=== PATIENT | female | born 1950 | race Caucasian/White ===

== ENCOUNTER → 2017-11-15 | Outpatient (CLI) | payer BC ==
--- NOTE | 2017-11-16 10:27 | BD ---
EXAMINATION TYPE: Axial Bone Density DATE OF EXAM: 11/15/2017 CLINICAL HISTORY: Osteoporosis screening. Postmenopausal female. Height: 62.5 Weight: 181 FRAX RISK QUESTIONS: Alcohol (3 or more units per day): no Family History (Parent hip fracture): no Glucocorticoids (More than 3mos): no (Ex: prednisone, prednisolone, methylprednisolone, dexamethasone, and hydrocortisone). History of Fracture in Adulthood: yes, foot, wrist Secondary Osteoporosis: 1. Type 1 Diabetes: no 2. Hyperthyroidism: no 3. Menopause before 45: no 4. Malnutrition: no 5. Chronic liver disease: no Rheumatoid Arthritis: no Current Tobacco Use: no RISK FACTORS HISTORY OF: Hip Fracture :no Spine Fracture: possible fracture involving sacrum & sacrococcygeal junction When: 2014 History of left Wrist Fracture: yes When: 2014 Surgery to Wrist (right/left): yes When: 2014 Family History of Osteoporosis: no Active: yes Diet low in dairy products/other sources of calcium: no Postmenopausal woman: yes Take estrogen and/or progesterone medications: no Lost more than 2 inches in height since high school: possible..patient states height may once have be en about 65 inches tall Frequent falls: no Poor Health: no Hyperparathyroidism: no Adrenal Insufficiency: no MEDICATIONS: Prednisone or other steroids: no Thyroid Medications: no Osteoporosis Medications: no Additional Medications: pill for "breathing" Additional History: EXAM MEASUREMENTS: Bone mineral densitometry was performed using the [employer]. Bone mineral density as measured about the Lumbar spine is: ----- L1-L4(G/cm2): 1.015 T Score Values are as follows: ----- L2: -1.5 ----- L3: -1.0 ----- L4: -1.5 ----- L1-L4: -1.4 Bone mineral density has: Increased 2.0% since study of: 09/07/2001 Bone mineral density about the R hip (g/cm2): 0.782 Bone mineral density about the L hip (g/cm2): 0.727 T Score values are as follows: -----R Neck: -1.8 -----L Neck: -2.2 -----R Total: -1.5 -----L Total: -1.7 Bone mineral density has: Increased 1.1% since study of: 09/07/2001 IMPRESSION: Osteopenia (T Score between -2.5 and -1). There is slightly increased risk of fracture and the patient may be considered for treatment. Re-Screen 2-5 years. NOTE: T-SCORE=SD OF THE YOUNG ADULT MEAN.
--- NOTE | 2017-11-17 08:44 | MM ---
Reason for exam: screening (asymptomatic). Physical Findings: A clinical breast exam by your physician is recommended on an annual basis and results should be correlated with mammographic findings. MG Screening Mammo w CAD Bilateral CC and MLO view(s) were taken. No prior studies available for comparison. There is no discrete abnormality. ASSESSMENT: Benign, BI-RAD 2 RECOMMENDATION: Routine screening mammogram of both breasts in 1 year.
== END | disposition home or self-care (01) ==
LOC: RADMAMWWP 07:35
PROVIDERS: ATTEND Family Medicine
DX: Z12.31 Encounter for screening mammogram for malignant neoplasm of breast (principal); M85.80 Other specified disorders of bone density and structure, unspecified site; Z80.3 Family history of malignant neoplasm of breast; Z78.0 Asymptomatic menopausal state
CPT/HCPCS: 77067; 77080

== ENCOUNTER → 2019-01-21 | Outpatient (CLI) | payer MEDICARE, BC ==
--- NOTE | 2019-01-21 11:58 | MM ---
Reason for exam: screening (asymptomatic). Last mammogram was performed 1 year and 2 months ago. Physical Findings: A clinical breast exam by your physician is recommended on an annual basis and results should be correlated with mammographic findings. MG 3D Screening Mammo W/Cad Bilateral CC and MLO view(s) were taken. Prior study comparison: November 15, 2017, bilateral MG screening mammo w CAD. The breast tissue is heterogeneously dense. This may lower the sensitivity of mammography. Benign appearing bilateral calcifications, mostly vascular. No suspicious abnormality. No significant changes when compared with prior studies. ASSESSMENT: Benign, BI-RAD 2 RECOMMENDATION: Routine screening mammogram of both breasts in 1 year.
== END | disposition home or self-care (01) ==
LOC: RADMAMWWP 08:59
PROVIDERS: ATTEND Family Medicine
DX: Z12.31 Encounter for screening mammogram for malignant neoplasm of breast (principal); Z80.3 Family history of malignant neoplasm of breast
CPT/HCPCS: 77063; 77067

== ENCOUNTER 2020-05-18 09:38 | Observation (INO) | payer MEDICARE, BC ==
[2020-05-18] MEDS ORDERED: BACITRACIN OINT 1 EACH PACKET TOPICAL ONE (10:07)
[2020-05-18] MEDS ORDERED: SODIUM CHLORIDE 0.9% 500 ML 500 ML IV ONE (10:07)
[2020-05-18] MEDS ORDERED: LIDOCAINE 1% INJ 10MG/ML (20 ML MDV) SQ ONE (10:07)
[2020-05-18] MEDS ORDERED: DIPH,PERTUS(ACELL)TETVAC-LF 0.5 ML VIAL IM ONE (10:08)
--- NOTE | 2020-05-18 10:14 | ED ---
Fall HPI - General Chief Complaint: Fall Stated Complaint: fall/knee lac Time Seen by Provider: 05/18/20 10:01 Source: patient Mode of arrival: ambulatory - History of Present Illness Initial Comments: 69-year-old female patient presents to the emergency department today for evalu ation after experiencing a fall. Patient states that she fell down the stairs approximately one hour ago. states when she he got home he noticed some blood at the bottom of the stairs. States patient was doing laundry. Had a large laceration to the left knee which she didn't cover. She states she is not having any pain to the area. Patient does have obvious head trauma but denies any headache, blurred vision, double vision. Denies any neck or back pain. She is reporting some mild discomfort to the right hand especially over the thumb. She is unsure when her last tetanus vaccine was given. Denies any use of anticoagulants or antiplatelet medications. States there is approximately [address] that she fell down. States she thinks she missed a step. Patient denies any recent rash, fever, chills, cough, shortness of breath, chest pain, abdominal pain, nausea, vomiting, diarrhea, constipation, hematuria, dysuria, urinary urgency, urinary frequency, or any other complaints. - Related Data Home Medications Medication Instructions Recorded Confirmed Multivitamins, Thera [Theragran] 1 tab PO DAILY 12/24/14 05/18/20 Ascorbic Acid [Vitamin C] 500 mg PO DAILY 05/18/20 05/18/20 Mv-Min/Vit C/Glut/Lysine/Hc124 1 tab PO DAILY 05/18/20 05/18/20 [Airborne Tablet Chewable] Vitamin D3(Unknown Dose) 1 tab PO DAILY 05/18/20 05/18/20 Zinc 50 mg PO DAILY 05/18/20 05/18/20 Allergies Allergy/AdvReac Type Severity Reaction Status Date / Time No Known Allergies Allergy Verified 05/18/20 13:31 Review of Systems ROS Statement: Those systems with pertinent positive or pertinent negative responses have been documented in the HPI. ROS Other: All systems not noted in ROS Statement are negative. Past Medical History Past Medical History: Osteoarthritis (OA) Additional Past Medical History / Comment(s): fx. left wrist Monday, currently in splint History of Any Multi-Drug Resistant Organisms: None Reported Past Surgical History: Orthopedic Surgery Additional Past Surgical History / Comment(s): ORIF left wrist, surgery on left hand index finger after injury Past Anesthesia/Blood Transfusion Reactions: No Reported Reaction Past Psychological History: No Psychological Hx Reported Smoking Status: Former smoker Past Alcohol Use History: Occasional Past Drug Use History: None Reported - Past Family History Father Family Medical History: Cancer Mother Family Medical History: Cancer General Exam Limitations: no limitations General appearance: alert, in no apparent distress, other (This is a well-developed, well-nourished adult female patient in no acute distress. Vital signs upon presentation are temperature 99.2F, pulse 1:30, respirations 18, blood pressure 177/108, pulse ox 95% on room air.) Eye exam: Present: normal appearance, PERRL, EOMI, periorbital swelling (Left superior orbital), periorbital tenderness (Left superior orbital). Absent: scleral icterus, conjunctival injection, nystagmus ENT exam: Present: normal exam, normal oropharynx, mucous membranes moist, TM's normal bilaterally (No hemotympanum) Neck exam: Present: normal inspection, full ROM, other (Nontender, no step-off, no deformity to firm midline palpation of the posterior cervical spine. Full range of motion without pain or limitation.). Absent: tenderness, meningismus, lymphadenopathy Respiratory exam: Present: normal lung sounds bilaterally. Absent: respiratory distress, wheezes, rales, rhonchi, stridor Cardiovascular Exam: Present: regular rate, normal rhythm, normal heart sounds. Absent: systolic murmur, diastolic murmur, rubs, gallop, clicks GI/Abdominal exam: Present: soft, normal bowel sounds. Absent: distended, tenderness, guarding, rebound, rigid Extremities exam: Present: full ROM, normal capillary refill, other (Soft tissue swelling and ecchymosis noted over the thenar eminence on the right hand. There is large, gaping, 12 cm laceration noted to the left inferior knee anteriorly. There is exposure of the joint sheath. No active bleeding. FROM intact. ). Absent: normal inspection, tenderness, pedal edema, joint swelling, calf tenderness Back exam: Present: normal inspection, other (Nontender, no step-off, no deformity to firm midline palpation of the thoracic and lumbar vertebrae. Full range of motion without pain or limitation.). Absent: vertebral tenderness Neurological exam: Present: alert, oriented X3, CN II-XII intact Psychiatric exam: Present: normal affect, normal mood Skin exam: Present: warm, dry, intact, normal color. Absent: rash Course Vital Signs 05/18/20 05/18/20 05/18/20 09:48 11:17 13:13 Temperature 99.2 F 99.0 F Pulse Rate 130 H 118 H Pulse Rate [ 125 H Pulse Oximetery ] Respiratory 18 18 18 Rate Blood Pressure 177/108 183/83 Blood Pressure 182/82 [Left Arm] O2 Sat by Pulse 95 97 96 Oximetry Medical Decision Making - Medical Decision Making 69-year-old female patient presented to the emergency department today for evaluation after experiencing a fall down approximately 7 steps. Patient did have some repetitive questioning, obvious trauma noted to the left periorbital region, and a large laceration to the left knee. Labs reviewed and are relatively unremarkable. CT brain and C-spine was obtained and showed no acute intracranial hemorrhage or fracture of the cervical spine. We did do CT facial bones which did show a inferior orbital rim fracture with mild depression. No muscular entrapment suspected. X-ray of the knee was unremarkable for acute osseous abnormality. Orthopedics was consulted, Chris Coleman PA-c was able to come and evaluate the patient, due to the severity and location of the laceration they did recommend irrigation and wash out in the OR. Patient was given, updated tetanus, and pain medication here in the emergency department. We did discuss orbital fracture and possible concussion. - Lab Data Result diagrams: 05/18/20 10:29 05/18/20 10:29 Lab Results 05/18/20 05/18/20 05/18/20 Range/Units 10:29 10:29 10:29 WBC 8.5 (3.8-10.6) k/uL RBC 4.73 (3.80-5.40) m/uL Hgb 14.4 (11.4-16.0) gm/dL Hct 44.6 (34.0-46.0) % MCV 94.4 (80.0-100.0) fL MCH 30.5 (25.0-35.0) pg MCHC 32.3 (31.0-37.0) g/dL RDW 12.9 (11.5-15.5) % Plt Count 279 (150-450) k/uL MPV 8.6 Neutrophils % 77 % Lymphocytes % 16 % Monocytes % 5 % Eosinophils % 1 % Basophils % 0 % Neutrophils # 6.6 (1.3-7.7) k/uL Lymphocytes # 1.4 (1.0-4.8) k/uL Monocytes # 0.4 (0-1.0) k/uL Eosinophils # 0.1 (0-0.7) k/uL Basophils # 0.0 (0-0.2) k/uL PT 9.9 (9.0-12.0) sec INR 0.9 (<1.2) APTT 22.2 (22.0-30.0) sec Sodium 139 (137-145) mmol/L Potassium 4.3 (3.5-5.1) mmol/L Chloride 107 (98-107) mmol/L Carbon Dioxide 21 L (22-30) mmol/L Anion Gap 11 mmol/L BUN 14 (7-17) mg/dL Creatinine 0.83 (0.52-1.04) mg/dL Est GFR (CKD-EPI)AfAm 83 (>60 ml/min/1.73 sqM) Est GFR (CKD-EPI)NonAf 72 (>60 ml/min/1.73 sqM) Glucose 118 H (74-99) mg/dL Calcium 10.3 H (8.4-10.2) mg/dL Total Bilirubin 0.6 (0.2-1.3) mg/dL AST 26 (14-36) U/L ALT 23 (4-34) U/L Alkaline Phosphatase 87 (38-126) U/L Total Protein 7.6 (6.3-8.2) g/dL Albumin 4.3 (3.5-5.0) g/dL Urine Color Urine Appearance (Clear) Urine pH (5.0-8.0) Ur Specific [place] (1.001-1.035) Urine Protein (Negative) Urine Glucose (UA) (Negative) Urine Ketones (Negative) Urine Blood (Negative) Urine Nitrite (Negative) Urine Bilirubin (Negative) Urine Urobilinogen (<2.0) mg/dL Ur Leukocyte Esterase (Negative) Urine RBC (0-5) /hpf Urine WBC (0-5) /hpf Ur Squamous Epith Cells (0-4) /hpf Urine Bacteria (None) /hpf Urine Mucus (None) /hpf 05/18/20 Range/Units 10:42 WBC (3.8-10.6) k/uL RBC (3.80-5.40) m/uL Hgb (11.4-16.0) gm/dL Hct (34.0-46.0) % MCV (80.0-100.0) fL MCH (25.0-35.0) pg MCHC (31.0-37.0) g/dL RDW (11.5-15.5) % Plt Count (150-450) k/uL MPV Neutrophils % % Lymphocytes % % Monocytes % % Eosinophils % % Basophils % % Neutrophils # (1.3-7.7) k/uL Lymphocytes # (1.0-4.8) k/uL Monocytes # (0-1.0) k/uL Eosinophils # (0-0.7) k/uL Basophils # (0-0.2) k/uL PT (9.0-12.0) sec INR (<1.2) APTT (22.0-30.0) sec Sodium (137-145) mmol/L Potassium (3.5-5.1) mmol/L Chloride (98-107) mmol/L Carbon Dioxide (22-30) mmol/L Anion Gap mmol/L BUN (7-17) mg/dL Creatinine (0.52-1.04) mg/dL Est GFR (CKD-EPI)AfAm (>60 ml/min/1.73 sqM) Est GFR (CKD-EPI)NonAf (>60 ml/min/1.73 sqM) Glucose (74-99) mg/dL Calcium (8.4-10.2) mg/dL Total Bilirubin (0.2-1.3) mg/dL AST (14-36) U/L ALT (4-34) U/L Alkaline Phosphatase (38-126) U/L Total Protein (6.3-8.2) g/dL Albumin (3.5-5.0) g/dL Urine Color Yellow Urine Appearance Cloudy H (Clear) Urine pH 5.5 (5.0-8.0) Ur Specific [place] 1.026 (1.001-1.035) Urine Protein Trace H (Negative) Urine Glucose (UA) Negative (Negative) Urine Ketones Negative (Negative) Urine Blood Negative (Negative) Urine Nitrite Negative (Negative) Urine Bilirubin Negative (Negative) Urine Urobilinogen <2.0 (<2.0) mg/dL Ur Leukocyte Esterase Negative (Negative) Urine RBC 5 (0-5) /hpf Urine WBC 1 (0-5) /hpf Ur Squamous Epith Cells 2 (0-4) /hpf Urine Bacteria Rare H (None) /hpf Urine Mucus Occasional H (None) /hpf - EKG Data -: EKG Interpreted by Me EKG Comments: EKG obtained at 1045 shows sinus tachycardia with a ventricular rate of 121, MA interval 138, QRS duration 74, QT 3:30, QTC 468. No evidence of ST elevation or depression - Radiology Data Radiology results: report reviewed, image reviewed CT brain and C-spine without contrast is obtained. Report was reviewed in its entirety. Impression by Dr. Fabian shows air-fluid level in the left maxillary sinus may be posttraumatic or acute sinusitis. Soft tissue swelling left frontal region. No acute intracranial process. An shows no acute osseous abnormality of the cervical spine. Degenerative disc changes through the mid and lower cervical spine. Uncoertebral joint hypertrophy contributing to foraminal narrowing greatest at C4 to 5 on the right. 3 views of the left knee are obtained. Report was reviewed in its entirety. Impression by Dr. Power shows correlate for anterior infrapatellar soft tissue laceration soft tissue injury. No underlying joint effusion or acute osseous abnormality is clearly identified. CT of the facial bones is obtained. Report was reviewed in its entirety. Impression by Dr. Brewer shows mildly depressed left inferior orbital rim fracture with no evidence of muscular entrapment. Large soft tissue hematoma with no diagnostic evidence of acute fracture. Tiny hyperdense structures and epidermis could represent foreign body along the left frontal skull soft tissue hematoma. 3 views of the right hand are obtained. Report was reviewed in its entirety. Impression by Dr. Power shows severe osteoarthritis of the first IP joint as well as a second fifth DIP joint with associated bony remodeling and mild angulation deformities. Additional moderate to severe OA at the base joint of the thumb. Osteopenia. No acute osseous abnormality seen Disposition Clinical Impression: Orbit fracture, left, Concussion, Laceration of left knee Disposition: ADMITTED IP TO THIS [facility] Condition: Serious
[2020-05-18 10:53] LABS: Basophils % (A) 0 %; Eosinophils # (A) 0.1 k/uL (0-0.7); Eosinophils % (A) 1 %; HCT 44.6 % (34.0-46.0); HGB 14.4 gm/dL (11.4-16.0); Lymphocytes # (A) 1.4 k/uL (1.0-4.8); Lymphocytes % (A) 16 %; MCH 30.5 pg (25.0-35.0); MCHC 32.3 g/dL (31.0-37.0); MCV 94.4 fL (80.0-100.0); Mean Platelet Volume 8.6; Monocytes # (A) 0.4 k/uL (0-1.0); Monocytes % (A) 5 %; Neutrophils # (A) 6.6 k/uL (1.3-7.7); Neutrophils % (A) 77 %; Platelet Count 279 k/uL (150-450); RBC 4.73 m/uL (3.80-5.40); RDW 12.9 % (11.5-15.5); WBC 8.5 k/uL (3.8-10.6)
[2020-05-18 11:07] LABS: Albumin 4.3 g/dL (3.5-5.0); Calcium 10.3 mg/dL (8.4-10.2); Potassium 4.3 mmol/L (3.5-5.1); Total Bilirubin 0.6 mg/dL (0.2-1.3); Total Protein 7.6 g/dL (6.3-8.2)
[2020-05-18 11:08] LABS: INR 0.9 (<1.2); Partial Thromboplastin Time 22.2 sec (22.0-30.0); Prothrombin Time 9.9 sec (9.0-12.0)
[2020-05-18 11:10] LABS: Appearance,Urine Cloudy (Clear); Bacteria,Urine Rare /hpf; Bilirubin,Urine Negative (Negative); Blood,Urine Negative (Negative); Color,Urine Yellow; Glucose,Urine (UA) Negative (Negative); Ketones,Urine Negative (Negative); Leukocyte Esterase,Urine Negative (Negative); Mucus,Urine Occasional /hpf; Nitrite,Urine Negative (Negative); PH, Urine 5.5 (5.0-8.0); Protein,Urine Trace (Negative); RBC,Urine 5 /hpf (0-5); Specific Gravity,Urine 1.026 (1.001-1.035); Squamous Epithelial Cell,Urine 2 /hpf (0-4); Urobilinogen,Urine <2.0 mg/dL (<2.0); WBC,Urine 1 /hpf (0-5)
--- NOTE | 2020-05-18 11:15 | XR ---
EXAMINATION TYPE: XR hand complete RT DATE OF EXAM: 05/18/2020 COMPARISON: NONE HISTORY: 69-year-old female hand injury and pain after fall TECHNIQUE: 3 views FINDINGS: Osteopenia. Advanced osteoarthritic change at the first IP joint as well as the second and fifth DIP joints with chronic bony remodeling of the joint. Mild angulation deformities are present here. Moder ate to severe degenerative change first CMC joint. Some external artifacts related to the patient's p eripheral line placement at the wrist. No acute fracture or dislocation seen. IMPRESSION: 1. Severe osteoarthrosis at the first IP joint as well as the second and fifth DIP joints with associ ated bony remodeling and mild angulation deformities. 2. Additional moderate to severe OA at the basal joint of the thumb. 3. Osteopenia. No acute osseous abnormality seen.
--- NOTE | 2020-05-18 11:17 | CT ---
EXAMINATION TYPE: CT brain harishine wo con DATE OF EXAM: 05/18/2020 COMPARISON: None HISTORY: Fall today, left periorbital injury. CT DLP: 1086.7 mGycm, Automated exposure control for dose reduction was used. CONTRAST: None CT of the brain is performed utilizing 3 mm thick sections through the posterior fossa and 3 mm thick sections through the remaining calvarium. Study is performed within 24 hours of arrival to the hospital. No abnormal hyperdensity is present to suggest an acute intracranial hemorrhage. No mass lesion is evident. No acute infarcts are evident. Ventricles and sulci are appropriate for the patient age. There is an air-fluid level within the left maxillary sinus. This could be due to trauma or acute sin usitis. Clinical correlation recommended. Remaining paranasal sinuses and mastoid air cells are clear . There is superficial soft tissue swelling over the left periorbital and left frontal region. No under lying fracture is identified. IMPRESSIONS: 1. Air-fluid level left maxillary sinus may be posttraumatic or acute sinusitis. 2. Soft tissue swelling left frontal region. 3. No acute intracranial process. CT cervical spine. COMPARISON: None CT of the cervical spine is performed in the axial plane at 2 mm thick sections. Reconstructed image s in the coronal, and sagittal plane are reviewed on the computer. No acute fractures are evident. Vertebral body alignment is normal. Loss of disc height is present throughout the cervical spine appears greatest at C5-6. Vertebral body heights are preserved. No spinal canal stenosis is evident. Uncovertebral joint hypertrophy is present at C4-5 on the right with moderate foraminal narrowing. IMPRESSIONS: 1. No acute osseous abnormality cervical spine. 2. Degenerative disc changes through the mid and lower cervical spine. 3. Uncovertebral joint hypertrophy contributing to foraminal narrowing greatest at C4-5 on the right.
--- NOTE | 2020-05-18 11:18 | XR ---
EXAMINATION TYPE: XR knee complete LT DATE OF EXAM: 05/18/2020 COMPARISON: None HISTORY: 69-year-old female with fall and knee injury, pain. TECHNIQUE: 3 views FINDINGS: There appears to be a soft tissue injury/laceration along the anterior aspect of the infrapatellar re gion. No underlying sizable knee joint effusion seen. No acute fracture, subluxation, or dislocation. IMPRESSION: Correlate for anterior infrapatellar soft tissue laceration and soft tissue injury. No underlying glendy nt effusion or acute osseous abnormality is clearly identified.
--- NOTE | 2020-05-18 11:22 | CT ---
EXAMINATION TYPE: CT facial bones wo con DATE OF EXAM: 05/18/2020 COMPARISON: None HISTORY: Fall today, left periorbital injury. CT DLP: 325.6 mGycm Automated exposure control for dose reduction was used. TECHNIQUE: CT scan of the sinuses is performed without contrast, axial images are obtained, coronal r eformatted images are also reviewed. FINDINGS: The paranasal sinuses including the frontal, ethmoid, sphenoid, and maxillary sinuses bila terally are well-aerated with mild changes of chronic left maxillary sinusitis.. The ostiomeatal com plex is patent bilaterally on the coronal images. Visualized portion of mastoid air cells show no abnormal opacification. The globes are intact bilate rally. Large soft tissue hematoma overlying the left frontal bone and periorbital region. Preseptal edema noted. Likely posttraumatic. Atherosclerotic change of the carotid arteries. Hypertrophic and d egenerative change of the spine with facet arthropathy. There is an inferior orbital rim fracture. No muscular entrapment. Small amount of air is seen within the inferior left orbit. IMPRESSION: 1. Mildly depressed left inferior orbital rim fracture with no evidence of muscular entrapment. Large soft tissue hematoma with no diagnostic evidence of acute fracture. Tiny hyperdense structures in the epidermis could represent foreign body along the left frontal skull soft tissue hematoma on ax ial image 68.
--- NOTE | 2020-05-18 12:35 | P.CNOR ---
History of Present Illness - [facility] Consult date: 05/18/20 Consult reason: other History of present illness: Patient is a 69-year-old female who presented to [facility] today due to an injury to her left lower extremity. Apparently the patient fell down her stairs at home resulting in a severe laceration around her left knee. Patient did also have her head during the fall. Patient's found her at home doing injury and noted the large amount of blood that was present around the steps and was able to bring the patient to the hospital. Upon arrival to the hospital, multiple imaging and lab tests were done. I was contacted by the emergency room staff regarding the patient, they did discuss the knee the laceration on the left knee. I did evaluate the patient at bedside in the emergency room. She's resting comfortably. She has normal discomfort involving her right thumb. She has some left facial pain also. X-rays of the right hand demonstrated no acute fractures or dislocations, severe osteoarthritis noted throughout the first digit including the IP joint and the CMC joint. Computed tomography scan of the head did demonstrate a left inferior orbital fracture. X-rays of the left knee demonstrated no acute fractures or dislocations, no obvious foreign bodies present. She denies any previous surgery of the left lower extremity. She states she is having minimal discomfort. She was able to walk after she initially fell and up until being in the emergency room. Patient denies any chest pain, shortness of breath, fever or chills. Past Medical History Past Medical History: Osteoarthritis (OA) Additional Past Medical History / Comment(s): fx. left wrist Monday, currently in splint History of Any Multi-Drug Resistant Organisms: None Reported Past Surgical History: Orthopedic Surgery Additional Past Surgical History / Comment(s): ORIF left wrist, surgery on left hand index finger after injury Past Anesthesia/Blood Transfusion Reactions: No Reported Reaction Past Psychological History: No Psychological Hx Reported Smoking Status: Former smoker Past Alcohol Use History: Occasional Past Drug Use History: None Reported - Past Family History Father Family Medical History: Cancer Mother Family Medical History: Cancer Medications and Allergies Home Medications Medication Instructions Recorded Confirmed Type Multivitamins, Thera [Theragran] 1 tab PO DAILY 12/24/14 05/18/20 History Ascorbic Acid [Vitamin C] 500 mg PO DAILY 05/18/20 05/18/20 History Mv-Min/Vit C/Glut/Lysine/Hc124 1 tab PO DAILY 05/18/20 05/18/20 History [Airborne Tablet Chewable] Vitamin D3(Unknown Dose) 1 tab PO DAILY 05/18/20 05/18/20 History Zinc 50 mg PO DAILY 05/18/20 05/18/20 History Allergies Allergy/AdvReac Type Severity Reaction Status Date / Time No Known Allergies Allergy Verified 05/18/20 12:15 Physical Examination Left lower extremity: Obvious laceration present over the infra-aspect of the knee, it is transverse in nature it ranges about 5-6 inches. The wound edges are clean, there is no obvious debris. Exam was difficult due to the discomfort patient was having, I was able to visualize the knee capsule, I was unable to appreciate any obvious bony protrusion. No joint effusion present on exam. Generalized tenderness surrounding the laceration area. She has no pain with palpation distal to the laceration, including foot and ankle. She has no discomfort at the proximal thigh. Logroll maneuver of the hip reproduces no discomfort, calf is soft, no tenderness with palpation. Plantar flexion, dorsiflexion, EHL, FHL are intact. Sensation to light touch is intact throughout the extremity. Dorsalis pedis pulses 2+. Results - Labs Labs: Abnormal Lab Results - Last 24 Hours (Table) 05/18/20 05/18/20 Range/Units 10:29 10:42 Carbon Dioxide 21 L (22-30) mmol/L Glucose 118 H (74-99) mg/dL Calcium 10.3 H (8.4-10.2) mg/dL Urine Appearance Cloudy H (Clear) Urine Protein Trace H (Negative) Urine Bacteria Rare H (None) /hpf Urine Mucus Occasional H (None) /hpf H & H 05/18/20 Range/Units 10:29 Hgb 14.4 (11.4-16.0) gm/dL Hct 44.6 (34.0-46.0) % Coagulation 05/18/20 Range/Units 10:29 INR 0.9 (<1.2) Result Diagrams: 05/18/20 10:29 05/18/20 10:29 - Diagnostic results Knee x-ray: report reviewed, image reviewed Assessment and Plan Assessment: Left knee laceration Status post fall from standing Plan: I was able to discuss the case, including physical exam findings and imaging studies my attending Dr. Barajas. Due to the severity of the laceration and where the involvement is, I would like to proceed with an irrigation and debridement with secondary wound closure in the operating room. The case was discussed the patient and her today bedside, including risk and benefits. They are in good understanding like to proceed. Consent will be obtained prior to procedure Nothing by mouth diet Basic wound care at this time Anticipated IV antibiotics during surgery, with plan for discharge home today on oral antibiotics Further recommendations to follow after surgery Time with Patient: Less than 30
[2020-05-18] MEDS ORDERED: LACTATED RINGERS 1,000 ML IV ONE ×3 (13:38→16:23)
[2020-05-18] MEDS ORDERED: ONDANSETRON 4 MG/2 ML VIAL ONE (13:39)
[2020-05-18] MEDS ORDERED: DEXAMETHASONE SOD PHOSPHATE 4 MG/ML 1 ML VIAL IV ONE (13:41)
[2020-05-18] MEDS ORDERED: ONDANSETRON 4 MG/2 ML VIAL IVP ONE (13:41)
[2020-05-18] MEDS ORDERED: PROPOFOL 10 MG/ML 20 ML VIAL IV ONE (14:23)
[2020-05-18] MEDS ORDERED: fentaNYL (PF) 50 MCG/ML 2 ML AMP ONE (14:23)
[2020-05-18] MEDS ORDERED: LIDOCAINE 1% INJ 10MG/ML (20 ML MDV) ONE (14:23)
[2020-05-18] MEDS ORDERED: SUCCINYLCHOLINE CHLORIDE 100 MG/5 ML SYR IV ONE (14:23)
[2020-05-18] MEDS ORDERED: BUPIVACAINE (PF) 0.25% 30 ML VIAL SQ ONE ×2 (14:53)
--- NOTE | 2020-05-18 15:00 | P.OP ---
Date of Procedure: 05/18/20 Preoperative Diagnosis: Left knee laceration Postoperative Diagnosis: 1. Left knee 3 cm longitudinal patellar tendon laceration 2. Left knee 8.5 cm horizontal skin laceration Procedure(s) Performed: 1. Repair left knee patellar tendon laceration 2. Repair left knee 8.5 cm skin laceration Anesthesia: SAGRARIO local Surgeon: Anton Barajas Herpetology Teacher #1: Howie Coleman Estimated Blood Loss (ml): 10 Pathology: other Condition: stable Disposition: PACU Indications for Procedure: 69-year-old patient who was seen in the emergency room with a large left knee skin laceration which appeared to be very deep. I recommend exploration with repair. Patient was agreeable and consent was obtained. Operative Findings: see description of procedure Description of Procedure: The patient was taken to the operative suite. The patient received preoperative IV antibiotics. The patient underwent a general anesthetic by the department of anesthesia. The left lower extremity was prepped and draped in a normal sterile orthopedic fashion. The wound was explored. There was an 8.5 cm horizontal laceration over the patellar tendon. The capsule appeared stable. There was a 3 cm longitudinal laceration through the midportion of the patellar tendon. It did not appear to be full-thickness. With range of motion of the knee both the quadriceps and patellar tendons otherwise appeared stable. There was no debris within the wound. There was no necrotic tissue within the wound. The wound was irrigated copiously with both normal saline and irresept. The patellar tendon laceration was now repaired with Vicryl suture. With range of motion and was stable. The subcu soft tissues now repaired with 2-0 Vicryl suture. The skin was repaired with skin joon. The subcutaneous soft tissues were infiltrated with quarter percent plain Marcaine. We applied sterile dressings. Sterile web roll and Cedric bandage were applied. There was no tourniquet utilized. The patient was awakened having tolerated procedure well. Chris JAIMES assisted with the procedure.
[2020-05-18 15:29] VITALS: TEMP 97.1
[2020-05-18 16:33] VITALS: RESP 20
--- NOTE | 2020-05-18 16:54 | P.PN ---
Progress Note - Text Progress Note Date: 05/18/20 Diagnoses: Left knee laceration, status post irrigation and debridement with secondary wound closure and patellar tendon repair Hospital course: Patient tolerated the procedure well, she went to both phase I and phase II recovery. I did check in on her on a few different occasions. Her pain is well-controlled. She was able to ambulate with assistive devices with no difficulty. Her vitals have remained stable. Prescriptions were provided for pain medication and oral antibiotics for outpatient pharmacy. Patient is stable for discharge to home. Instructions were provided for discharge, follow-up will be in the outpatient setting in 2 weeks. She is also given our office information and contact us with any further questions.
[2020-05-18 17:13] VITALS: BP 172/76; PULSE 109
== END 2020-05-18 17:30 | disposition home or self-care (01) ==
LOC: EC 09:38 → 1SOBS 12:45
PROVIDERS: ADMIT Orthopaedic Surgery; ATTEND Orthopaedic Surgery
DX: S81.012A Laceration without foreign body, left knee, initial encounter (principal); F32.9 Major depressive disorder, single episode, unspecified; S02.85XA Fracture of orbit, unspecified, initial encounter for closed fracture; S06.0X9A Concussion with loss of consciousness of unspecified duration, initial encounter; W10.9XXA Fall (on) (from) unspecified stairs and steps, initial encounter; Z87.891 Personal history of nicotine dependence
CPT/HCPCS: 27380; 13121; 13122; 90471; 99285; 36415; 93005; 80053; 85025; 85610; 85730; 81001; 73130; 73562; 72125; 70486; 70450; 90715; G0378; J1100; J2405; J0690; J2001; J3010; J0330; J2704

== ENCOUNTER → 2021-01-26 | Outpatient (CLI) | payer MEDICARE ==
--- NOTE | 2021-01-28 13:57 | MM ---
Reason for exam: screening (asymptomatic). Last mammogram was performed 2 years ago. Physical Findings: A clinical breast exam by your physician is recommended on an annual basis and results should be correlated with mammographic findings. MG 3D Screening Mammo W/Cad Bilateral CC and MLO view(s) were taken. Prior study comparison: January 21, 2019, bilateral MG 3d screening mammo w/cad. November 15, 2017, bilateral MG screening mammo w CAD. There are scattered fibroglandular densities. No significant changes when compared with prior studies. ASSESSMENT: Benign, BI-RAD 2 RECOMMENDATION: Routine screening mammogram of both breasts in 1 year.
== END | disposition home or self-care (01) ==
LOC: RADMAMWWP 10:16
PROVIDERS: ATTEND Family Medicine
DX: Z12.31 Encounter for screening mammogram for malignant neoplasm of breast (principal); R00.0 Tachycardia, unspecified
CPT/HCPCS: 77063; 77067; 93005

== ENCOUNTER → 2021-03-29 | Outpatient (CLI) | payer MEDICARE ==
--- NOTE | 2021-03-30 08:05 | BD ---
EXAMINATION TYPE: Axial Bone Density DATE OF EXAM: 03/29/2021 COMPARISON: Prior DEXA bone scan 2017 CLINICAL HISTORY: Postmenopausal female. Height: 5 FT 3IN Weight: 194 FRAX RISK QUESTIONS: Alcohol (3 or more units per day): NO Family History (Parent hip fracture): NO Glucocorticoids (More than 3mos): NO (Ex: prednisone, prednisolone, methylprednisolone, dexamethasone, and hydrocortisone). History of Fracture in Adulthood: YES Secondary Osteoporosis: 1. Type 1 Diabetes: NO 2. Hyperthyroidism: NO 3. Menopause before 45: NO 4. Malnutrition: NO 5. Chronic liver disease: NO Rheumatoid Arthritis: NO Current Tobacco Use: NO RISK FACTORS HISTORY OF: Surgery to Spine/Hip(right/left)/Wrist (right/left): LEFT WRIST When: 6 YEARS AGO Family History of Osteoporosis: NO Active: YES Diet low in dairy products/other sources of calcium: NO Postmenopausal woman: UNSURE Take estrogen and/or progesterone medications: NO Lost more than 2 inches in height since high school: YES MEDICATIONS: Additional Medications: CHOLESTEROL, DEPRESSION MEDS Additional History: EXAM MEASUREMENTS: Bone mineral densitometry was performed using the [employer]. Bone mineral density as measured about the Lumbar spine is: ----- L1-L4(G/cm2): 0.994 T Score Values are as follows: ----- L2: -1.5 ----- L3: -1.9 ----- L4: -1.3 ----- L1-L4: -1.5 Bone mineral density has: DECREASED -2.9 % since study of: 2017 Bone mineral density about the R hip (g/cm2): 0.812 Bone mineral density about the L hip (g/cm2): 0.741 T Score values are as follows: -----R Neck: -1.6 -----L Neck: -2.1 -----R Total: -1.6 -----L Total: -1.6 Bone mineral density has: INCREASED 0.2 % since study of: 2018 IMPRESSION: Osteopenia (T Score between -2.5 and -1) remains present. There remains slightly increased risk of fracture and the patient may be considered for treatment. Re-Screen 2-5 years. NOTE: T-SCORE=SD OF THE YOUNG ADULT MEAN.
== END | disposition home or self-care (01) ==
LOC: RADBDWWP 13:59
PROVIDERS: ATTEND Family Medicine
DX: M85.89 Other specified disorders of bone density and structure, multiple sites (principal); Z78.0 Asymptomatic menopausal state
CPT/HCPCS: 77080

== ENCOUNTER → 2022-01-27 | Outpatient (CLI) | payer MEDICARE ==
--- NOTE | 2022-01-28 15:50 | MM ---
Reason for Exam: Screening (asymptomatic). Last screening mammogram was performed 12 month(s) ago. Patient History: Menarche at age 11. First Full-Term at age 23. Postmenopausal. Mother had breast cancer at or over age 50. Daughter had breast cancer at or over age 50. Risk Values: Kristine 5 year model risk: 6.1%. NCI Lifetime model risk: 14.3%. Prior Study Comparison: 11/15/2017 Bilateral Screening Mammogram, [facility]. 01/21/2019 Bilateral Screening Mammogram, [facility]. 01/26/2021 Bilateral Screening Mammogram, [facility]. Tissue Density: There are scattered fibroglandular densities. Findings: Analyzed By CAD. Benign vascular calcifications on both sides. There is no suspicious group of microcalcifications or new suspicious mass in either breast. Overall Assessment: Benign, BI-RAD 2 Management: Screening Mammogram of both breasts in 1 year. 1. Patient should continue monthly self breast exams. 2. A clinical breast exam by your physician is recommended on an annual basis. 3. This exam should not preclude additional follow-up of suspicious palpable abnormalities. Electronically signed and approved by: Saroj Power M.D. Radiologist
== END | disposition home or self-care (01) ==
LOC: RADMAMWWP 07:06
PROVIDERS: ATTEND Family Medicine
DX: Z12.31 Encounter for screening mammogram for malignant neoplasm of breast (principal); Z80.3 Family history of malignant neoplasm of breast; Z78.0 Asymptomatic menopausal state
CPT/HCPCS: 77063; 77067

== ENCOUNTER → 2023-02-07 | Outpatient (CLI) | payer MEDICARE ==
--- NOTE | 2023-02-08 15:56 | MM ---
Reason for Exam: Screening (asymptomatic). Last screening mammogram was performed 12 month(s) ago. Patient History: Menarche at age 11. First Full-Term at age 23. Postmenopausal. Mother had breast cancer at or over age 50. Daughter had breast cancer at or over age 50. Risk Values: Kristine 5 year model risk: 6.1%. NCI Lifetime model risk: 13.5%. Prior Study Comparison: 01/21/2019 Bilateral Screening Mammogram, [facility]. 01/26/2021 Bilateral Screening Mammogram, [facility]. 01/27/2022 Bilateral MG 3D screening mammo w/cad, [facility]. Tissue Density: There are scattered fibroglandular densities. Findings: Analyzed By CAD. Pattern appears symmetrical and stable. Vascular calcification is present bilaterally. No significant interval changes are evident. No suspicious groups of microcalcifications, spiculated or lobular masses, architectural distortion or other secondary signs of malignancy are mammographically apparent. Overall Assessment: Benign, BI-RAD 2 Management: Screening Mammogram of both breasts in 1 year. A negative mammogram report should not preclude additional follow up of suspicious palpable abnormalities. Patient should continue monthly self breast exam. A clinical breast exam by your physician is recommended on an annual basis and results should be correlated with mammographic findings. Electronically signed and approved by: Alexys Fabian D.O. Radiologis
== END | disposition home or self-care (01) ==
LOC: RADMAMWWP 08:17
PROVIDERS: ATTEND Family Medicine
DX: Z12.31 Encounter for screening mammogram for malignant neoplasm of breast (principal); Z78.0 Asymptomatic menopausal state; Z80.3 Family history of malignant neoplasm of breast
CPT/HCPCS: 77063; 77067

== ENCOUNTER → 2024-02-09 | Outpatient (CLI) | payer MEDICARE ==
--- NOTE | 2024-02-26 18:28 | MM ---
Reason for Exam: Screening (asymptomatic). Last screening mammogram was performed 12 month(s) ago. Patient History: Menarche at age 11. First Full-Term at age 23. Postmenopausal. Mother had breast cancer at or over age 50. Daughter had breast cancer at or over age 50. Risk Values: Velma 5 year model risk: 6.1%. NCI Lifetime model risk: 12.7%. Prior Study Comparison: 01/26/2021 Bilateral Screening Mammogram, [facility]. 01/27/2022 Bilateral MG 3D screening mammo w/cad, [facility]. 02/07/2023 Bilateral MG 3D screening mammo w/cad, [facility]. Tissue Density: There are scattered areas of fibroglandular density. Findings: Analyzed By CAD. Bilateral bilateral vascular calcifications. There is abnormal along the inferior aspect of the right breast. There is no suspicious group of microcalcifications or new suspicious mass in either breast. Overall Assessment: Benign, BI-RAD 2 Management: Screening Mammogram of both breasts in 1 year. SEE NOTE BELOW IN REGARDS TO PATIENT'S INCREASED 5 YEAR VELMA SCORE. Patient should continue monthly self-breast exams. A clinical breast exam by your physician is recommended on an annual basis. This exam should not preclude additional follow-up of suspicious palpable abnormalities. Note on Velma scores and lifetime risk: 1. A Velma score greater than 3% is considered moderate risk. If this is the case, consider specialist referral to assess eligibility for a risk reducing agent. 2. If overall lifetime risk for the development of breast cancer is 20% or higher, the patient may qualify for future screening with alternating mammogram and breast MRI. Electronically signed and approved by: Saroj Power M.D. Radiologist
== END | disposition home or self-care (01) ==
LOC: RADMAMWWP 11:15
PROVIDERS: ATTEND Family Medicine
DX: Z12.31 Encounter for screening mammogram for malignant neoplasm of breast (principal); R92.1 Mammographic calcification found on diagnostic imaging of breast; Z78.0 Asymptomatic menopausal state; Z80.3 Family history of malignant neoplasm of breast
CPT/HCPCS: 77063; 77067

== ENCOUNTER → 2024-03-13 | Outpatient (CLI) | payer MEDICARE ==
[2024-03-13 15:06] LABS: Basophils # (A) 0.04 X 10*3/uL (0.00-0.10); Basophils % (A) 0.5 %; Eosinophils # (A) 0.07 X 10*3/uL (0.04-0.35); Eosinophils % (A) 0.9 %; HCT 41.1 % (37.2-46.3); HGB 12.8 g/dL (12.0-15.0); Lymphocytes # (A) 1.89 X 10*3/uL (0.90-5.00); Lymphocytes % (A) 25.6 %; MCH 30.4 pg (27.0-32.0); MCHC 31.1 g/dL (32.0-37.0); MCV 97.6 FL (80.0-97.0); Mean Platelet Volume 10.8 FL (9.5-12.2); Monocytes # (A) 0.53 X 10*3/uL (0.20-1.00); Monocytes % (A) 7.2 %; NRBC Per 100 WBC 0 X 10*3/uL (0.00-0.01); Neutrophils # (A) 4.84 X 10*3/uL (1.80-7.70); Neutrophils % (A) 65.5 %; Platelet Count 295 X 10*3/uL (140-440); RBC 4.21 X 10*6/uL (4.10-5.20); WBC 7.39 X 10*3/uL (4.50-10.00)
[2024-03-13 15:21] LABS: % Iron Saturation 23.17 (12.00-45.00); Blood Urea Nitrogen 16.3 mg/dL (9.0-27.0); Calcium 9.7 mg/dL (8.7-10.3); Carbon Dioxide 24.7 mmol/L (21.6-31.8); Chloride 102 mmol/L (96-109); Glucose 106 mg/dL (70-110); Iron 76 UG/DL (50-170); Magnesium 2.4 mg/dL (1.5-2.4); Potassium 4.9 mmol/L (3.5-5.5); Sodium 139 mmol/L (135-145); Total Iron Binding Capacity 328 UG/DL (228-460)
[2024-03-13 15:29] LABS: Appearance,Urine Clear (Clear); Bilirubin,Urine Negative (Negative); Blood,Urine Negative (Negative); Color,Urine Dark Yellow (Yellow); Ketones,Urine Negative (Negative); Nitrite,Urine Negative (Negative); Urobilinogen,Urine 0.2 E.U./DL
[2024-03-13 15:31] LABS: Bacteria,Urine None Seen (None Seen)
[2024-03-13 22:37] LABS: Microalbumin Creatinine Ratio <12 mg/g Cr (0-30); Urine Creatinine 96.8 mg/dL (28.0-217.0)
== END | disposition home or self-care (01) ==
LOC: LABWHC1 10:17
PROVIDERS: ATTEND Internal Medicine Nephrology
DX: N18.31 Chronic kidney disease, stage 3a
CPT/HCPCS: 36415; 80048; 81001; 82043; 82570; 82728; 83540; 83550; 83735; 85025